=== PATIENT | male | born 1985 | race Caucasian/White ===

== ENCOUNTER 2020-01-22 07:47 | Emergency (ER) | payer OTHER ==
[2020-01-22 07:57] VITALS: BP 169/94
--- NOTE | 2020-01-22 08:26 | ED Physician Documentation ---
History of Present Illness - Stated complaint Stated Complaint: MED REFILL - Chief complaint Chief Complaint: General - History obtained from History obtained from: Patient (84-year-old gentleman with no physical complaints presents to the emergency department requesting a refill of his routine medications. There was some sort of mixup at the [facility] and he will not be able to get his meds in the mail for about 2 weeks. We confirmed that his meds include Jardiance 25 mg half a tab daily, metformin 1000 mg twice a day, glipizide 10 mg twice a day, gemfibrozil 600 mg twice a day and losartan 25 mg daily. He also request routine screening blood work because he is having trouble setting this up through the [facility] as well.) Review of Systems Constitutional: denies: Fever, Chills, Myalgias, Fatigue Cardiac: denies: Chest pain / pressure Respiratory: denies: Dyspnea GI: denies: Abdominal Pain, Nausea, Diarrhea PD PAST MEDICAL HISTORY - Present Medications Home Medications: Ambulatory Orders Medication Instructions Recorded Confirmed Empagliflozin [Jardiance] 0.5 tab PO DAILY #14 tablet 01/22/20 Empagliflozin [Jardiance] 1 tab DAILY 01/22/20 01/22/20 Gemfibrozil [Lopid] 1 tab BID 01/22/20 01/22/20 Gemfibrozil [Lopid] 600 mg PO BID #60 tablet 01/22/20 Glipizide 10 mg PO BID #60 tablet 01/22/20 Glipizide [Glipizide Xl] 1 tab BID 01/22/20 01/22/20 Losartan Potassium 1 tab DAILY 01/22/20 01/22/20 Losartan Potassium 25 mg PO DAILY #30 tablet 01/22/20 Metformin HCl 1 tab BID 01/22/20 01/22/20 Metformin HCl 1,000 mg PO BID #60 tablet 01/22/20 - Allergies Allergies/Adverse Reactions: Allergies Allergy/AdvReac Type Severity Reaction Status Date / Time No Known Drug Allergies Allergy Verified 01/22/20 07:57 PD ED PE NORMAL - Vitals Vital signs reviewed: Yes - General General: Alert and oriented X 3, No acute distress - Derm Derm: Normal color, Warm and dry, No rash - Neuro Neuro: Alert and oriented X 3, Normal speech Results - Vitals Vitals: Vital Signs - 24 hr 01/22/20 07:53 Temperature 36.1 C L Heart Rate 86 Respiratory 16 Rate Blood Pressure 169/94 H O2 Saturation 95 Oxygen O2 Source Room air PD MEDICAL DECISION MAKING - ED course ED course: Discussed with him that the blood work would not get copy to his doctor if we ordered it here. He has been fasting since last night. He requests that done regardless. We will do it as a service to him but discussed with him that he would be responsible for pulling the results from medical records and getting him to his doctor. Departure - Departure Disposition: Home, Self Care Clinical Impression: Hypertension Qualifiers: Hypertension type: essential hypertension Qualified Code(s): I10 - Essential (primary) hypertension Diabetes type 2, uncontrolled Qualifiers: Glycemic state: with hyperglycemia Qualified Code(s): E11.65 - Type 2 diabetes mellitus with hyperglycemia Condition: Good Record reviewed to determine appropriate education?: Yes Instructions: ED HTN Established, Diabetes Type 2 Prescriptions: Empagliflozin [Jardiance] 0.5 tab PO DAILY #14 tablet Gemfibrozil [Lopid] 600 mg PO BID #60 tablet Glipizide 10 mg PO BID #60 tablet Losartan Potassium 25 mg PO DAILY #30 tablet Metformin HCl 1,000 mg PO BID #60 tablet Comments: As discussed, I am happy to order routine blood work on you, because it is not getting ordered by your doctor though you need to pull the results from medical records and copy them to your doctor. Return for new or worsening symptoms. Further refills must come from your physician at the [facility].
[2020-01-22 08:51] LABS: HB2 TOTAL 14.8 g/dL; HEMOGLOBIN A1C 1.01 g/dL; HEMOGLOBIN A1C % 8.4 % (4.6-6.2)
[2020-01-22 09:28] LABS: BUN - BLOOD UREA NITROGEN 18 mg/dL (6-20); CALCIUM 9.8 mg/dL (8.5-10.3); CARBON DIOXIDE - CO2 24 mmol/L (21-32); CHLORIDE 100 mmol/L (101-111); CHOL/HDL RATIO 10.3 (<5.0); CHOLESTEROL 279 mg/dL; CREATININE 0.8 mg/dL (0.6-1.2); GFR - MDRD 109 (>89); GLUCOSE 409 mg/dL (70-100); HDL CHOLESTEROL 27 mg/dL; SODIUM 134 mmol/L (135-145)
[2020-01-22 10:39] LABS: LDL CHOLESTEROL,DIRECT 33 mg/dL; LDLD/HDL RATIO 1.2 (<3.6)
== END 2020-01-22 08:30 | disposition home or self-care (01) ==
LOC: ED 07:47
DX: E11.65 Type 2 diabetes mellitus with hyperglycemia (principal); Z79.84 Long term (current) use of oral hypoglycemic drugs; I10 Essential (primary) hypertension
CPT/HCPCS: 36415; 80048; 80061; 83036; 83721; 99281

== ENCOUNTER 2020-10-22 08:56 | Emergency (ER) | payer OTHER ==
[2020-10-22 09:03] VITALS: BP 130/73
[2020-10-22] MEDS ORDERED: KETOROLAC 60 MG/2 ML VIAL IM STA (09:17)
[2020-10-22 09:42] LABS: BASOPHILS % (AUTO) 0.8 %; EOSINOPHILS # (AUTO) 0.2 10^3/uL (0.0-0.7); EOSINOPHILS % (AUTO) 2.8 %; HGB - HEMOGLOBIN 14.9 g/dL (14.0-18.0); LYMPHOCYTES # (AUTO) 1.2 10^3/uL (1.5-3.5); MEAN CORPUSCULAR HGB CONC 35.3 g/dL (32.0-36.0); MEAN CORPUSCULAR VOLUME 90.6 fL (80.0-94.0); MEAN PLATELET VOLUME 11.4 fL (7.4-11.4); MONOCYTES # (AUTO) 0.5 10^3/uL (0.0-1.0); NEUTROPHILS # (AUTO) 3.4 10^3/uL (1.5-6.6); NEUTROPHILS % (AUTO) 63.1 %; PLT - PLATELET COUNT 131 10^3/uL (130-450); RED BLOOD COUNT 4.66 10^6/uL (4.70-6.10); RED CELL DISTRIBUTION WIDTH 12.6 % (12.0-15.0); WHITE BLOOD COUNT 5.3 x10^3/uL (4.8-10.8)
--- NOTE | 2020-10-22 09:50 | XRAY Report ---
PROCEDURE: Knee 2 View LT INDICATIONS: swelling, pain since wednesday TECHNIQUE: 2 views of the left knee(s) were acquired. COMPARISON: None. FINDINGS: Bones: No gross fractures or dislocations. No suspicious bony lesions. Soft tissues: Moderate to large joint effusion is seen. No suspicious soft tissue calcifications. IMPRESSION: No gross acute left knee fracture or dislocation. Moderate to large suprapatellar joint effusion. If indicated, MRI of knee can be done for evaluation of internal derangement. Reviewed by: Rojas Sanz MD on 10/22/2020 9:49 AM PST Approved by: Rojas Sanz MD on 10/22/2020 9:49 AM PST Station ID: [id number]
--- NOTE | 2020-10-22 10:38 | ED Physician Documentation ---
History of Present Illness - Stated complaint Stated Complaint: LT KNEE PX - Chief complaint Chief Complaint: Ext Problem - History obtained from History obtained from: Patient - Additonal information Additional information: 35-year-old man with past medical history of gout and recurrent left knee effusion presents with knee pain Gradual in onset over the past couple days, worse with walking and weightbearing, better with rest, associated with swelling but no erythema, aching and nonradiating, moderate severity. Denies fevers or traumatic injury. Review of Systems Constitutional: denies: Fever, Chills, Myalgias Skin: denies: Rash, Lesions Musculoskeletal: reports: Joint pain PD PAST MEDICAL HISTORY - Past Medical History Cardiovascular: Hypertension, High cholesterol Endocrine/Autoimmune: Type 2 diabetes Musculoskeletal: Gout - Past Surgical History Past Surgical History: Yes General: Appendectomy - Present Medications Home Medications: Ambulatory Orders Medication Instructions Recorded Confirmed Atorvastatin Calcium 1 tab DAILY 01/22/20 01/22/20 Empagliflozin [Jardiance] 0.5 tab PO DAILY #14 tablet 01/22/20 Empagliflozin [Jardiance] 1 tab DAILY 01/22/20 01/22/20 Gemfibrozil [Lopid] 1 tab BID 01/22/20 01/22/20 Gemfibrozil [Lopid] 600 mg PO BID #60 tablet 01/22/20 Glipizide 10 mg PO BID #60 tablet 01/22/20 Glipizide [Glipizide Xl] 1 tab BID 01/22/20 01/22/20 Losartan Potassium 1 tab DAILY 01/22/20 01/22/20 Losartan Potassium 25 mg PO DAILY #30 tablet 01/22/20 Metformin HCl 1 tab BID 01/22/20 01/22/20 Metformin HCl 1,000 mg PO BID #60 tablet 01/22/20 allopurinoL [Allopurinol] 1 tab DAILY 01/22/20 01/22/20 Prednisone 40 mg PO QDAC 5 Days #5 tab.ds.pk 10/22/20 - Allergies Allergies/Adverse Reactions: Allergies Allergy/AdvReac Type Severity Reaction Status Date / Time amoxicillin AdvReac Hives Verified 10/22/20 09:04 - Social History Does the pt smoke?: No Smoking Status: Never smoker Does the pt drink ETOH?: Yes PD ED PE NORMAL - Vitals Vital signs reviewed: Yes - General General: Alert and oriented X 3 - HEENT HEENT: Atraumatic, PERRL, EOMI - Extremities Extremities: Other (Left knee with palpable effusion. No erythema compared to the right. Tender to palpation and with range of motion. No calor compared to the right.) - Neuro Neuro: No motor deficit, No sensory deficit - Psych Psych: Normal mood, Normal affect Results - Vitals Vitals: Vital Signs - 24 hr 10/22/20 08:57 Temperature 36.9 C Heart Rate 98 Respiratory 18 Rate Blood Pressure 130/73 O2 Saturation 99 Oxygen O2 Source Room air - Labs Labs: Laboratory Tests 10/22/20 10/22/20 09:25 09:25 WBC 5.3 RBC 4.66 L Hgb 14.9 Hct 42.2 MCV 90.6 MCH 32.0 H MCHC 35.3 RDW 12.6 Plt Count 131 MPV 11.4 Neut # (Auto) 3.4 Lymph # (Auto) 1.2 L [place] # (Auto) 0.5 Eos # (Auto) 0.2 Baso # (Auto) 0.0 Absolute Nucleated RBC 0.00 Nucleated RBC % 0.0 ESR 38 H PD MEDICAL DECISION MAKING - ED course Complexity details: reviewed results, re-evaluated patient, d/w patient ED course: 35-year-old man with history of recurrent left knee effusion, gout, presents with left knee pain, found to have effusion on x-ray. No signs of infection on blood work or physical exam. Pain is responsive to Toradol. I offered an arthrocentesis to the patient but he declined. Extensive education given about risk of infection in the joint. Strict return precautions given. Patient will follow up with his PMD and orthopedics. Departure - Departure Disposition: 01 Home, Self Care Clinical Impression: Swelling of knee joint, left, Knee pain, left Condition: Good Instructions: ED RICE Follow-Up: uRsh Diego MD [Provider Admit Priv/Credential] - Prescriptions: Prednisone 40 mg PO QDAC 5 Days #5 tab.ds.pk Comments: You have been seen in the emergency department for knee pain. You have an effusion above your knee on x-ray. There is no break in the bone. It is possible that you have an infection and as we discussed I recommend a arthrocentesis but since you would rather go home, it is important to follow-up if any of your symptoms get worse. [facility] I also gave you an orthopedic referral. Return for any new or worsening symptoms Discharge Date/Time: 10/22/20 10:43
== END 2020-10-22 10:43 | disposition home or self-care (01) ==
LOC: ED 08:56
DX: M25.562 Pain in left knee (principal); M25.462 Effusion, left knee; I10 Essential (primary) hypertension; E11.9 Type 2 diabetes mellitus without complications; Z79.84 Long term (current) use of oral hypoglycemic drugs
CPT/HCPCS: 36415; 85025; 85651; 96372; 99283; 99284

== ENCOUNTER 2020-12-08 22:03 | Emergency (ER) | payer OTHER ==
[2020-12-08] MEDS ORDERED: KETOROLAC 30 MG/ML VIAL IM STA (23:48)
[2020-12-09 00:20] VITALS: BP 131/83
--- NOTE | 2020-12-09 02:30 | ED Physician Documentation ---
History of Present Illness - Stated complaint Stated Complaint: LT HAND INJURY - Chief complaint Chief Complaint: Ext Problem - History obtained from History obtained from: Patient - Additonal information Additional information: 35-year-old man with medical history of diabetes type 2 p/w left hand injury after tripping at work on Wednesday falling onto outstretched hand. Pain was sudden onset, moderate, constant, aching, worse with range of motion, Radiating from the dorsum of the hand upward to the distal forearm, progressively worsening over the course of the weekend to the extent that he is now having difficulty using tools. He is right-hand dominant. Denies warmth to the touch, fevers, numbness or weakness. Review of Systems Constitutional: denies: Fever, Chills Skin: denies: Lesions Musculoskeletal: reports: Extremity pain, Joint pain PD PAST MEDICAL HISTORY - Past Medical History Past Medical History: Yes Cardiovascular: Hypertension, High cholesterol Respiratory: None Neuro: None Endocrine/Autoimmune: Type 2 diabetes GI: None : None HEENT: None Psych: None Musculoskeletal: Gout Derm: None - Past Surgical History Past Surgical History: Yes General: Appendectomy - Present Medications Home Medications: Ambulatory Orders Medication Instructions Recorded Confirmed Atorvastatin Calcium 1 tab DAILY 01/22/20 12/08/20 Empagliflozin [Jardiance] 0.5 tab PO DAILY #14 tablet 01/22/20 12/08/20 Gemfibrozil [Lopid] 600 mg PO BID #60 tablet 01/22/20 12/08/20 Glipizide [Glipizide Xl] 1 tab BID 01/22/20 12/08/20 Losartan Potassium 25 mg PO DAILY #30 tablet 01/22/20 12/08/20 Metformin HCl 1,000 mg PO BID #60 tablet 01/22/20 12/08/20 Ibuprofen [Motrin] 800 mg PO Q8H PRN #30 tablet 12/09/20 - Allergies Allergies/Adverse Reactions: Allergies Allergy/AdvReac Type Severity Reaction Status Date / Time amoxicillin AdvReac Hives Verified 10/22/20 09:04 - Social History Does the pt smoke?: Yes Smoking Status: Current every day smoker Does the pt drink ETOH?: Yes Does the pt have substance abuse?: No - Immunizations Immunizations are current?: Yes PD ED PE NORMAL - Vitals Vital signs reviewed: Yes - General General: Alert and oriented X 3, No acute distress - HEENT HEENT: Atraumatic - Derm Derm: Normal color, Warm and dry - Extremities Extremities: Other (Left third and fourth metatarsal tender to palpation with overlying mild swelling but no erythema or warmth. Tender with flexion of the third and fourth digit and tender with range of motion of the wrist. Distal forearm nontender. 2+ radial pulse. Normal strength and sensation.) - Neuro Neuro: Alert and oriented X 3 - Psych Psych: Normal mood, Normal affect Results - Vitals Vitals: Vital Signs - 24 hr 12/08/20 12/09/20 12/09/20 22:05 00:19 00:21 Temperature 36 C L 37.3 C 37.3 C Heart Rate 113 H 97 97 Respiratory 22 16 16 Rate Blood Pressure 163/81 H 131/83 H 131/83 H O2 Saturation 97 97 97 Oxygen O2 Source Room air PD MEDICAL DECISION MAKING - ED course ED course: 35-year-old man presents with swelling and pain to the left hand after a workplace injury. Xray with no apparent fracture however I suspect occult nondisplaced stress fracture vs tendon strain. L&I form completed. Patient placed in thumb spica splint. He will follow up in orthopedics in 1 week. return precautions given. Departure - Departure Disposition: 01 Home, Self Care Clinical Impression: Swelling of left hand, Hand pain, left Condition: Good Instructions: ED RICE Follow-Up: Severiano Tariq MD [Provider Admit Priv/Credential] - Prescriptions: Ibuprofen [Motrin] 800 mg PO Q8H PRN #30 tablet PRN Reason: PAIN &/OR FEVER Comments: You were seen in the emergency department for hand pain. Your x-rays showed soft tissue swelling around the joints of the hand consistent with a possible break in the bone or a tendon injury. You should follow-up with orthopedics in 1 week. Wear your splint until that time. Return to the emergency department if you have numbness, weakness, severe pain, new or worsening symptoms or other concerns. Discharge Date/Time: 12/09/20 00:22
--- NOTE | 2020-12-09 08:41 | XRAY Report ---
PROCEDURE: Wrist 3 View LT INDICATIONS: FOOSH TECHNIQUE: 3 views of the wrist were acquired. COMPARISON: None FINDINGS: Bones: No fractures or dislocations. No suspicious bony lesions. Soft tissues: No suspicious soft tissue calcifications. IMPRESSION: No visualized acute fracture or dislocation. However, occult injury cannot be excluded. Recommend jonny rt interval imaging follow-up in 7-10 days as clinically indicated for additional evaluation. The above findings are concordant with preliminary report. Reviewed by: Laura Hopper MD on 12/09/2020 8:40 AM PST Approved by: Laura Hopper MD on 12/09/2020 8:40 AM PST Station ID: [id number]
--- NOTE | 2020-12-09 08:42 | XRAY Report ---
PROCEDURE: Hand 3 View LT INDICATIONS: FOOSH TECHNIQUE: 3 views of the hand(s) acquired. COMPARISON: X-ray wrist 12/08/2020 FINDINGS: Bones: No fractures or dislocations. No suspicious bony lesions. Soft tissues: No suspicious soft tissue calcifications. IMPRESSION: No visualized acute fracture or dislocation. However, occult injury cannot be excluded. Recommend jonny rt interval imaging follow-up in 7-10 days as clinically indicated for additional evaluation. The above findings are concordant with preliminary report. Reviewed by: Laura Hopper MD on 12/09/2020 8:41 AM PST Approved by: Laura Hopper MD on 12/09/2020 8:41 AM PST Station ID: [id number]
== END 2020-12-09 00:22 | disposition home or self-care (01) ==
LOC: ED 22:03
DX: S69.92XA Unspecified injury of left wrist, hand and finger(s), initial encounter (principal); M79.642 Pain in left hand; M79.89 Other specified soft tissue disorders; W01.0XXA Fall on same level from slipping, tripping and stumbling without subsequent striking against object, initial encounter; Y99.0 Civilian activity done for income or pay; I10 Essential (primary) hypertension; E11.9 Type 2 diabetes mellitus without complications; Z79.84 Long term (current) use of oral hypoglycemic drugs; F17.200 Nicotine dependence, unspecified, uncomplicated
CPT/HCPCS: 1040M; 73110; 73130; 96372; 99284

== ENCOUNTER 2021-03-10 13:59 | Emergency (ER) | payer MEDICAID, OTHER ==
[2021-03-10] MEDS ORDERED: SODIUM CHLORIDE 0.9% 1,000 ML IV STA (14:21)
[2021-03-10 14:43] LABS: VBG PCO2 48.1 mmHg (41-51); VBG PH 7.386 (7.31-7.41); VBG PO2 18.5 mmHg (25-47)
[2021-03-10 14:44] LABS: BILIRUBIN,URINE NEGATIVE (NEGATIVE); GLUCOSE, URINE (UA) >=1000 mg/dL (NEGATIVE); KETONES,URINE (UA) NEGATIVE (NEGATIVE); LEUKOCYTE ESTERASE, URINE NEGATIVE (NEGATIVE); NITRITE,URINE NEGATIVE (NEGATIVE); OCCULT BLOOD,URINE NEGATIVE (NEGATIVE); PH,URINE 5.5 PH (5.0-7.5); PROTEIN,URINE NEGATIVE (NEGATIVE); UROBILINOGEN,URINE 0.2 (NORMAL) E.U./dL (NORMAL)
[2021-03-10 14:44] LABS: VBG BASE EXCESS 2.3 mmol/L (-2 - +2); VBG HCO3 28.2 mmol/L (23-28); VBG OXYGEN SATURATION 33.3 % (60-80); VBG TOTAL CO2 29.7 mmol/L (24-29)
[2021-03-10 14:47] LABS: CLARITY,URINE CLEAR (CLEAR)
[2021-03-10 14:47] LABS: BASOPHILS % (AUTO) 0.9 %; EOSINOPHILS # (AUTO) 0.2 10^3/uL (0.0-0.7); EOSINOPHILS % (AUTO) 4.6 %; HCT - HEMATOCRIT 44.7 % (42.0-52.0); HGB - HEMOGLOBIN 15.4 g/dL (14.0-18.0); LYMPHOCYTES # (AUTO) 1.4 10^3/uL (1.5-3.5); LYMPHOCYTES % (AUTO) 31.1 %; MEAN CORPUSCULAR HGB CONC 34.5 g/dL (32.0-36.0); MEAN CORPUSCULAR VOLUME 89.9 fL (80.0-94.0); MEAN PLATELET VOLUME 11.3 fL (7.4-11.4); MONOCYTES # (AUTO) 0.3 10^3/uL (0.0-1.0); MONOCYTES % (AUTO) 5.9 %; NEUTROPHILS # (AUTO) 2.6 10^3/uL (1.5-6.6); NEUTROPHILS % (AUTO) 56.2 %; PLT - PLATELET COUNT 148 10^3/uL (130-450); RED BLOOD COUNT 4.97 10^6/uL (4.70-6.10); RED CELL DISTRIBUTION WIDTH 12.6 % (12.0-15.0); WHITE BLOOD COUNT 4.6 x10^3/uL (4.8-10.8)
[2021-03-10] MEDS ORDERED: ONDANSETRON 4 MG/2 ML VIAL IVP STA (14:48)
[2021-03-10 15:09] LABS: ALBUMIN 4.6 g/dL (3.2-5.5); ALBUMIN/GLOBULIN RATIO 1.8 (1.0-2.2); ALKALINE PHOSPHATASE 62 IU/L (42-121); ALT ALANINE AMINOTRANSFERASE 40 IU/L (10-60); AST ASPARTATE AMINOTRANSFERASE < 10 IU/L (10-42); BILIRUBIN,TOTAL 0.6 mg/dL (0.2-1.0); BUN - BLOOD UREA NITROGEN 10 mg/dL (6-20); CALCIUM 9.5 mg/dL (8.5-10.3); CARBON DIOXIDE - CO2 29 mmol/L (21-32); CHLORIDE 101 mmol/L (101-111); CREATININE 0.9 mg/dL (0.6-1.2); GFR - MDRD 95 (>89); GLUCOSE 269 mg/dL (70-100); LIPASE 27 U/L (22-51); SODIUM 139 mmol/L (135-145); TOTAL PROTEIN 7.2 g/dL (6.7-8.2)
[2021-03-10 15:10] LABS: KETONES, SERUM (ACETEST) NEGATIVE (NEGATIVE)
[2021-03-10] MEDS ORDERED: ACETAMINOPHEN 325 MG TABLET PO STA (17:04)
[2021-03-10 17:06] VITALS: BP 131/78
--- NOTE | 2021-03-10 17:06 | ED Physician Documentation ---
History of Present Illness - Stated complaint Stated Complaint: HIGH BLOOD SUGAR/NAUSEA/BLURRY VISION - Chief complaint Chief Complaint: General - History obtained from History obtained from: Patient - Additonal information Additional information: 35yM with pmh htn, hld, dm2 presents requesting med refills. he states he has been experiencing intermittent nausea and dizziness but denies fever, abd pain vomiting or diarrhea. Review of Systems Ten Systems: 10 systems reviewed and negative Constitutional: denies: Fever, Chills GI: reports: Nausea. denies: Abdominal Pain, Vomiting, Diarrhea : denies: Dysuria Neurologic: reports: Generalized weakness PD PAST MEDICAL HISTORY - Past Medical History Past Medical History: Yes Cardiovascular: Hypertension, High cholesterol Respiratory: None Neuro: None Endocrine/Autoimmune: Type 2 diabetes GI: None : None HEENT: None Psych: None Musculoskeletal: Gout Derm: None - Past Surgical History Past Surgical History: Yes General: Appendectomy - Present Medications Home Medications: Ambulatory Orders Medication Instructions Recorded Confirmed Atorvastatin Calcium 1 tab DAILY 01/22/20 12/08/20 Empagliflozin [Jardiance] 0.5 tab PO DAILY #14 tablet 01/22/20 12/08/20 Gemfibrozil [Lopid] 600 mg PO BID #60 tablet 01/22/20 12/08/20 Glipizide [Glipizide Xl] 1 tab BID 01/22/20 12/08/20 Losartan Potassium 25 mg PO DAILY #30 tablet 01/22/20 12/08/20 Metformin HCl 1,000 mg PO BID #60 tablet 01/22/20 12/08/20 Ibuprofen [Motrin] 800 mg PO Q8H PRN #30 tablet 12/09/20 Atorvastatin [Lipitor] 20 mg PO QDAC #15 tablet 03/10/21 Empagliflozin [Jardiance] 10 mg PO QDAC #15 tablet 03/10/21 Glipizide 10 mg PO BID #30 tablet 03/10/21 Losartan Potassium 25 mg PO QDAC #15 tablet 03/10/21 gemfibroziL [Lopid] 600 mg PO BIDAC #30 tablet 03/10/21 metFORMIN [Glucophage] 1,000 mg PO QDAC #15 tablet 03/10/21 - Allergies Allergies/Adverse Reactions: Allergies Allergy/AdvReac Type Severity Reaction Status Date / Time amoxicillin AdvReac Hives Verified 03/10/21 14:04 - Social History Does the pt smoke?: Yes Smoking Status: Current every day smoker Does the pt drink ETOH?: Yes Does the pt have substance abuse?: No - Immunizations Immunizations are current?: Yes - POLST Patient has POLST: No PD ED PE NORMAL - Vitals Vital signs reviewed: Yes - General General: Alert and oriented X 3, No acute distress, Well developed/nourished - HEENT HEENT: Atraumatic, PERRL, EOMI - Neck Neck: Supple, no meningeal sign - Cardiac Cardiac: RRR - Respiratory Respiratory: No respiratory distress, Clear bilaterally - Abdomen Abdomen: Non tender, Non distended - Back Back: No CVA TTP - Derm Derm: Normal color - Extremities Extremities: No deformity - Neuro Neuro: Alert and oriented X 3 - Psych Psych: Normal mood, Normal affect Results - Vitals Vitals: Vital Signs - 24 hr 03/10/21 03/10/21 03/10/21 14:04 14:12 15:26 Temperature 36.5 C 36.5 C Heart Rate 100 100 86 Respiratory 16 16 16 Rate Blood Pressure 139/86 H 139/86 H 132/79 H O2 Saturation 100 100 97 03/10/21 17:06 Temperature 36.7 C Heart Rate 91 Respiratory 18 Rate Blood Pressure 131/78 H O2 Saturation 98 Oxygen O2 Source Room air - Labs Labs: Laboratory Tests 03/10/21 03/10/21 03/10/21 14:28 14:34 14:34 WBC 4.6 L RBC 4.97 Hgb 15.4 Hct 44.7 MCV 89.9 MCH 31.0 MCHC 34.5 RDW 12.6 Plt Count 148 MPV 11.3 Neut # (Auto) 2.6 Lymph # (Auto) 1.4 L [place] # (Auto) 0.3 Eos # (Auto) 0.2 Baso # (Auto) 0.0 Absolute Nucleated RBC 0.00 Nucleated RBC % 0.0 VBG pH VBG pCO2 VBG pO2 VBG HCO3 VBG Total CO2 VBG O2 Saturation VBG Base Excess Sodium 139 Potassium 4.0 Chloride 101 Carbon Dioxide 29 Anion Gap 9.0 BUN 10 Creatinine 0.9 Estimated GFR (MDRD) 95 Glucose 269 H Calcium 9.5 Total Bilirubin 0.6 AST < 10 L ALT 40 Alkaline Phosphatase 62 Total Protein 7.2 Albumin 4.6 Globulin 2.6 Albumin/Globulin Ratio 1.8 Lipase 27 Urine Color YELLOW Urine Clarity CLEAR Urine pH 5.5 Ur Specific [place] 1.020 Urine Protein NEGATIVE Urine Glucose (UA) >=1000 H Urine Ketones NEGATIVE Urine Occult Blood NEGATIVE Urine Nitrite NEGATIVE Urine Bilirubin NEGATIVE Urine Urobilinogen 0.2 (NORMAL) Ur Leukocyte Esterase NEGATIVE Ur Microscopic Review NOT INDICATED Urine Culture Comments NOT INDICATED Serum Ketones NEGATIVE 03/10/21 14:34 WBC RBC Hgb Hct MCV MCH MCHC RDW Plt Count MPV Neut # (Auto) Lymph # (Auto) [place] # (Auto) Eos # (Auto) Baso # (Auto) Absolute Nucleated RBC Nucleated RBC % VBG pH 7.386 VBG pCO2 48.1 VBG pO2 18.5 L VBG HCO3 28.2 H VBG Total CO2 29.7 H VBG O2 Saturation 33.3 L VBG Base Excess 2.3 H Sodium Potassium Chloride Carbon Dioxide Anion Gap BUN Creatinine Estimated GFR (MDRD) Glucose Calcium Total Bilirubin AST ALT Alkaline Phosphatase Total Protein Albumin Globulin Albumin/Globulin Ratio Lipase Urine Color Urine Clarity Urine pH Ur Specific [place] Urine Protein Urine Glucose (UA) Urine Ketones Urine Occult Blood Urine Nitrite Urine Bilirubin Urine Urobilinogen Ur Leukocyte Esterase Ur Microscopic Review Urine Culture Comments Serum Ketones PD MEDICAL DECISION MAKING - ED course ED course: 35yM presents requesting med refills. His workup in the ED is noncontributory and he is well appearing on exam. return precautions given. will give short script since he is out of all his meds. f/u pmd. Departure - Departure Disposition: 01 Home, Self Care Clinical Impression: Diabetes, Headache, Medication refill Condition: Stable Instructions: Diabetes Resources, ED Headache Tension Prescriptions: Glipizide 10 mg PO BID #30 tablet metFORMIN [Glucophage] 1,000 mg PO QDAC #15 tablet Empagliflozin [Jardiance] 10 mg PO QDAC #15 tablet Atorvastatin [Lipitor] 20 mg PO QDAC #15 tablet gemfibroziL [Lopid] 600 mg PO BIDAC #30 tablet Losartan Potassium 25 mg PO QDAC #15 tablet Comments: You were seen in the emergency department after running out of your medications. Please return to the emergency department if you experience any new or worsening symptoms or have other concerns. Follow-up with your primary doctor this week. Discharge Date/Time: 03/10/21 17:18
== END 2021-03-10 17:18 | disposition home or self-care (01) ==
LOC: ED 13:59
DX: R51.9 Headache, unspecified (principal); R11.0 Nausea; R42 Dizziness and giddiness; R53.1 Weakness; Z76.0 Encounter for issue of repeat prescription; E11.9 Type 2 diabetes mellitus without complications; Z79.84 Long term (current) use of oral hypoglycemic drugs; I10 Essential (primary) hypertension; E78.5 Hyperlipidemia, unspecified; F17.200 Nicotine dependence, unspecified, uncomplicated
CPT/HCPCS: 36415; 80053; 81003; 82009; 82803; 83690; 85025; 96361; 96374; 99283; 99284; A9270; 81001; 87086